=== PATIENT | female | born 1960 | race African-American/Black ===

== ENCOUNTER 2017-12-01 11:56 | Emergency (ER) | payer MEDICAID ==
[~2017-12-01] VITALS: Ht 162.6 cm; Wt 86.2 kg
[2017-12-01] MEDS ORDERED: LISINOPRIL20 MG ORAL (12:09)
[2017-12-01] MEDS ORDERED: FUROSEMIDE20 M1 ORAL (12:09)
[2017-12-01 12:16] VITALS: BP 124/82
--- NOTE | 2017-12-01 12:55 | Emergency Room Report ---
History of Present Illness General Chief Complaint: Flu Like Symptoms Source: Patient, Medical Record Present Illness HPI 57-year-old female presents to the emergency department complaining of cough, productive sputum, increased phlegm and nasal congestion with rhinorrhea times one week. Patient reports subjective fevers of around 99-100. Patient reports several ill contacts in her family who have been diagnosed with bronchitis.Denies sore throat, ear pain, high fevers, lethargy, neck pain/ stiffness, irritability, photophobia dehydration, N/V/D. Denies Cp, Palpitations , LOC, AMS, seizures, paresthesias, or changes in Hearing or vision, no Sudden severe RICKETTS. Denies hx of smoking, asthma or COPD. patient states that she is an active smoker. Allergies: Coded Allergies: SHELLFISH DERIVED (Unverified Allergy, Unknown, 12/01/17) Uncoded Allergies: SHELLFISH (Allergy, Unknown, 12/01/17) Patient History Past Medical History: see triage record Past Surgical History: none Pertinent Family History: none Last Menstrual Period: menopause Now: No Reviewed Nursing Documentation: PMH: Agreed; PSxH: Agreed Nursing Documentation-PMH Past Medical History: No History, Except For Hx Hypertension: Yes Review of Systems All Other Systems: negative except mentioned in HPI Physical Exam Vital Signs Date Time Temp Pulse Resp B/P (MAP) Pulse Ox O2 Delivery O2 Flow Rate FiO2 12/01/17 12:06 98.5 65 18 128/83 95 Room Air 98.4 Sp02 EP Interpretation: reviewed, normal General Appearance: no apparent distress, alert, GCS 15, non-toxic Head: normocephalic, atraumatic Eyes: bilateral eye normal inspection, bilateral eye PERRL ENT: hearing grossly normal, normal voice Neck: full range of motion Respiratory: chest non-tender, lungs clear, no rhonchi, no respiratory distress , no accessory muscle use, speaking full sentences, wheezing Cardiovascular #1: regular rate, rhythm, no edema Gastrointestinal: normal bowel sounds, non tender, soft Rectal: deferred Genitourinary: normal inspection Musculoskeletal: back normal, gait/station normal, normal range of motion, non- tender Neurologic: alert, oriented x3, responsive, motor strength/tone normal, sensory intact, speech normal, grossly normal Psychiatric: judgement/insight normal Skin: normal color, no rash, warm/dry, well hydrated Lymphatic: no adenopathy Medical Decision Making PA Attestation Dr. Melton is my supervising Physician whom patient management has been discussed with. Diagnostic Impression: Primary Impression: Viral URI with cough Additional Impression: Bronchitis ER Course 57-year-old female presents to the emergency department complaining of cough, productive sputum, increased phlegm and nasal congestion with rhinorrhea times one week. Patient reports subjective fevers of around 99-100. Patient reports several ill contacts in her family who have been diagnosed with bronchitis.Denies sore throat, ear pain, high fevers, lethargy, neck pain/ stiffness, irritability, photophobia dehydration, N/V/D. Denies Cp, Palpitations , LOC, AMS, seizures, paresthesias, or changes in Hearing or vision, no Sudden severe RICKETTS. Denies hx of smoking, asthma or COPD. patient states that she is an active smoker. Ddx considered but are not limited to URI, pneumonia, PE, strep pharyngitis, meningitis. Vital signs: Pt.is afebrile VS are WNL H&PE are most consistent with bronchitis ORDERS: none required at this time, the diagnosis is clinical ED INTERVENTIONS: None required at this time. DISCHARGE: At this time pt. is stable for d/c to home. Will provide printed patient care instructions, and any necessary prescriptions. Care plan and follow up instructions have been discussed with the patient prior to discharge. Last Vital Signs Date Time Temp Pulse Resp B/P (MAP) Pulse Ox O2 Delivery O2 Flow Rate FiO2 12/01/17 12:06 98.5 65 18 128/83 95 Room Air 98.4 Disposition: HOME, SELF-CARE Condition: Stable Scripts Loratadine/Pseudoephedrine (CLARITIN-D 12 HOUR TABLET) 1 Each Tab.er.12h 1 TAB ORAL EVERY 12 HOURS for 7 Days, #14 TAB Prov: Soniya Campuzano 12/01/17 Codeine/Promethazine Hcl* (PROMETHAZINE-CODEINE SYRUP*) 118 Ml Syrup 5 ML ORAL Q6H PRN for For Cough, #120 ML 0 Refills Prov: Soniya Campuzano 12/01/17 Guaifenesin (Guaifenesin) 1,200 Mg Tab.er.12h 1200 MG PO BID for 10 Days, #20 TAB Prov: Soniya Campuzano 12/01/17 Albuterol Sulfate* (ALBUTEROL SULFATE MDI*) 8.5 Gm Hfa.aer.ad 2 PUFF INH Q3H, #1 INH 0 Refills Prov: Soniya Campuzano 12/01/17 Patient Instructions: Acute Bronchitis, Danf-lo-Pzoe, Upper Respiratory Infection, Adult, [id number] Additional Instructions: Take medications as directed. Follow up with a Primary Care Provider in 3-5 days, even if your symptoms have resolved. --Please review list of primary care clinics, if you do not already have a primary care provider Return sooner to ED if new symptoms occur, or current symptoms become worse. Do not drink alcohol, drive, or operate heavy machinery while taking Cough Syrup as this may cause drowsiness. - Please note that this Emergency Department Report was dictated using [employer] examiner technology software, occasionally this can lead to erroneous entry secondary to interpretation by the dictation equipment. Soniya Campuzano Dec 01, 2017 12:54
[2017-12-01] MEDS ORDERED: CLARITIN-D 121 EAC1 ORAL (12:56)
[2017-12-01] MEDS ORDERED: PROMETHAZINE-C118 M1 ORAL (12:56)
[2017-12-01] MEDS ORDERED: ALBUTEROL SULF8.5 GM INH (12:56)
[2017-12-01] MEDS ORDERED: GUAIFENESIN1200 MG PO (12:56)
[2017-12-01 13:17] VITALS: BP 124/82
== END 2017-12-01 13:41 | disposition home or self-care (01) ==
LOC: EMR 12:55
DX: J06.9 Acute upper respiratory infection, unspecified (principal); B97.89 Other viral agents as the cause of diseases classified elsewhere; J40 Bronchitis, not specified as acute or chronic; I10 Essential (primary) hypertension; Z91.013 Allergy to seafood
CPT/HCPCS: 99284

== ENCOUNTER 2019-02-07 15:37 | Emergency (ER) | payer MEDICAID, OTHER ==
[~2019-02-07] VITALS: Ht 162.6 cm; Wt 86.2 kg
[~2019-02-07 15:37] MED LIST: ALBUTEROL SULF8.5 GM INH; CLARITIN-D 121 EAC1 ORAL; FUROSEMIDE20 M1 ORAL; GUAIFENESIN1200 MG PO; LISINOPRIL20 MG ORAL; PROMETHAZINE-C118 M1 ORAL
[2019-02-07 16:10] VITALS: BP 118/70
--- NOTE | 2019-02-07 16:10 | NUR ---
ED Nurse Note: pt walked in due to right knee pain. denies recent trauma. pt is seen by nila muller. will continue to monitor.
[2019-02-07] MEDS ORDERED: Ketorolac 30mg Inj IM ONE (16:15)
--- NOTE | 2019-02-07 16:20 | NUR ---
ED Nurse Note: xray on bedside
--- NOTE | 2019-02-07 17:15 | Diagnostic Imaging Report ---
Indication: Right knee pain Technique: 3 views of the right knee Comparison: None Findings: There is minimal degenerative narrowing of the medial joint compartment. No acute fractures. No dislocations. There is equivocal trace suprapatellar effusion. There is a small superior pole traction patellar osteophyte Impression: Degenerative changes as described No acute bony trauma Equivocal minimal effusion This agrees with the preliminary interpretation provided overnight by [facility] service.
[2019-02-07 17:50] VITALS: BP 118/70
--- NOTE | 2019-02-07 17:50 | NUR ---
ER DISCHARGE NOTE: Patient is cleared to be discharged per ERMD, pt is aox4, on room air, with stable vital signs. pt was given dc and prescription instructions, pt was able to verbalize understanding, pt id band removed without complications. pt is able to ambulate with steady gait. pt took all belongings.
--- NOTE | 2019-02-07 18:27 | Emergency Room Report ---
History of Present Illness General Chief Complaint: Pain Source: Patient Present Illness HPI 58-year-old female complaining of worsening right knee pain for 3 weeks. Pain is 10 out of 10, located anterior knee. Denies fall or injury. Has been limping due to pain. Allergies: Coded Allergies: SHELLFISH DERIVED (Unverified Allergy, Unknown, 12/01/17) Uncoded Allergies: SHELLFISH (Allergy, Unknown, 12/01/17) Patient History Past Medical History: none Past Surgical History: emma, Last Menstrual Period: Postmenopausal Nursing Documentation-PMH Hx Hypertension: Yes Physical Exam Vital Signs Date Time Temp Pulse Resp B/P (MAP) Pulse Ox O2 Delivery O2 Flow Rate FiO2 02/07/19 15:51 99.0 68 19 118/70 (86) 99 Room Air Sp02 EP Interpretation: reviewed, normal Respiratory: chest non-tender, lungs clear, normal breath sounds, speaking full sentences Cardiovascular #1: regular rate, rhythm, no edema Musculoskeletal: other - right knee: no deformity, no erythema, mild swelling over lateral aspect of knee, tender to anterior aspect of knee, good ROM. Neurologic: normal inspection, furnace converter III-XII nml as tested, motor strength/tone normal Medical Decision Making PA Attestation This patient was seen under the direct supervision of Dr. Vance, who directed all aspects of care and diagnostic interpretation. Diagnostic Impression: Primary Impression: Right knee pain Qualified Codes: M25.561 - Pain in right knee ER Course ED course HPI: 58-year-old female complaining of worsening right knee pain for 3 weeks. Pain is 10 out of 10, located anterior knee. Denies fall or injury. Has been limping due to pain. Ddx: Fracture versus contusion versus arthritis HPI & PE consistent with: Right knee pain Orders/ Interventions: Xray ordered. Right knee xray ordered-no fracture or malalignment. Small joint effusion. Mild Joint space narrowing within the medial compartment. Toradol 30 mg IM given for pain, pain improved to 5 out of 10. Narayan wrap to the right knee. Neurovascular intact status post Narayan wrap. Disposition: Patient stable for discharge home. Continue with OTC ibuprofen for pain. Instructed on how to take meds and possible side effects of medication. Rest, ice 20 minutes aday for 3x a day,compress (keep it wrapped), and elevate at least 30 minute a day. Modified daily activities, limit use of injured extremity. Followup PCP/ortho in 2 days or return for worsening symptoms, new symptoms or sudden change in condition. Please note that this Emergency Department Report was dictated using [employer] nurse technology software, occasionally this can lead to erroneous entry secondary to interpretation by the dictation equipment. Other X-Ray Diagnostic Results Other X-Ray Diagnostic Results : X-Ray ordered: right knee # of Views/Limited Vs Complete: 3 View Indication: Pain EP Interpretation: Yes PA Xray: Interpretation reviewed, by supervising MD, and agrees with findings. Interpretation: no dislocation, no fractures, other - Small joint effusion. Mild joint space narrowing within the medial compartment. Electronically Signed by: Gemini Gates PA-C Last Vital Signs Date Time Temp Pulse Resp B/P (MAP) Pulse Ox O2 Delivery O2 Flow Rate FiO2 02/07/19 16:58 98.9 02/07/19 16:10 68 19 118/70 99 Room Air Status: improved Disposition: HOME, SELF-CARE Patient Instructions: Knee Pain, [id number] Additional Instructions: Followup with PCP in 2 days or return to ED if worsening symptoms, new symptoms or sudden change in condition. Gemini Gates Feb 07, 2019 18:27
== END 2019-02-07 17:50 | disposition home or self-care (01) ==
LOC: EMR 17:10
DX: M25.561 Pain in right knee (principal); Z91.013 Allergy to seafood; I10 Essential (primary) hypertension; Z90.49 Acquired absence of other specified parts of digestive tract
CPT/HCPCS: 73562; 96372; 99283; J1885